=== PATIENT | female | born 1985 | race African-American/Black ===

== ENCOUNTER 2020-07-24 17:48 | Emergency (ER) | payer MEDICAID ==
--- NOTE | 2020-07-24 19:12 | RAD ---
PORTABLE CHEST: 07/24/20 HISTORY: COVID positive, cough, nausea, diarrhea. Heart size and mediastinum are within normal limits. The lungs are clear of any infiltrates. No signi ficant bony findings. IMPRESSION: No active intrathoracic disease. POS: [place]
[2020-07-25 21:21] LABS: SARS-CoV-2 MS2 Positive; SARS-CoV-2 N Gene Positive; SARS-CoV-2 S Gene Positive; SARS-CoV-2 by NAA DETECTED (NotDetected); SARS-CoV-2 orf1ab Positive
== END 2020-07-24 20:00 | disposition home or self-care (01) ==
LOC: NAV ERS 17:48
DX: U07.1 COVID-19 (principal); R19.7 Diarrhea, unspecified
CPT/HCPCS: 71045; 87635; U0003

== ENCOUNTER 2020-07-29 13:54 | Emergency (ER) | payer MEDICAID, OTHER | END 2020-07-29 14:19 | disposition left against medical advice (07) | LOC: NAV ERS 13:54 | DX: Z53.21 Procedure and treatment not carried out due to patient leaving prior to being seen by health care provider (principal) ==